=== PATIENT | male | born 1980 | race American Indian/Alaskan Native ===

== ENCOUNTER 2021-07-19 21:41 | Inpatient (IN) | payer SELFPAY ==
[2021-07-19] MEDS ORDERED: NALOXONE 2 MG/2 ML INJ IV ONE (22:10)
[2021-07-19] MEDS ORDERED: SODIUM CHLORIDE 0.9% 1000 ML 1,000 ML IV ONE (22:10)
[2021-07-19] MEDS ORDERED: DEXTROSE 50% IN WATER (25GM) 50 ML SYRINGE IV ONE (22:27)
[2021-07-19] MEDS ORDERED: DEXTROSE 10% *Hypoglycemia IV ONE ×2 (22:34→22:35)
[2021-07-19] MEDS ORDERED: GLUCAGON (HUMAN RECOMBINANT) 1 MG/ML INJ IV ONE (22:35)
[2021-07-19] MEDS ORDERED: DEXTROSE 10% IN WATER 1,000 ML IV SCH (23:00)
--- NOTE | 2021-07-19 23:03 | XRay Report ---
CHEST 1 VIEW INDICATION / CLINICAL INFORMATION: AMS. COMPARISON: None available. FINDINGS: SUPPORT DEVICES: None. HEART / MEDIASTINUM: No significant abnormality. LUNGS / PLEURA: Patient is prominently rotated. There is minimal bibasilar parenchymal disease, nonsp ecific. Given the low lung volumes, the most likely etiology for the bibasilar parenchymal disease is atelectasis. The remainder of the lungs are grossly clear. No pneumothorax. ADDITIONAL FINDINGS: No significant additional findings. IMPRESSION: 1. Low lung volumes with mild bibasilar parenchymal disease, more than likely atelectasis. Signer Name: Mitzi Bhandari MD Signed: 07/19/2021 10:59 PM Workstation Name: [id number]
[2021-07-19 23:29] LABS: Mean Corpuscular HGB Conc 31 % (32-34); Mean Corpuscular Volume 84 fl (84-94); Platelet Count 361 K/mm3 (140-440); Red Blood Count 5.65 M/mm3 (3.65-5.03); Red Cell Distribution Width 14.4 % (13.2-15.2)
[2021-07-19 23:32] LABS: Hematocrit 47.4 % (35.5-45.6); Hemoglobin 14.8 gm/dl (11.8-15.2)
[2021-07-20 00:22] LABS: Alanine Aminotransferase 19 units/L (7-56); BUN/Creatinine Ratio 12; Blood Urea Nitrogen 16 mg/dL (9-20); Calcium 9.1 mg/dL (8.4-10.2); Hemolysis Index 3
[2021-07-20] MEDS ORDERED: DEXTROSE 50% IN WATER (25GM) 50 ML SYRINGE IV ONE (00:25)
[2021-07-20 01:04] LABS: Bilirubin,Urine NEG (Negative); Blood,Urine SM (Negative); Color,Urine Yellow (Yellow); Protein,Urine <15 mg/dL mg/dL (Negative); Urobilinogen,Urine < 2.0 mg/dL (<2.0)
[2021-07-20 01:12] LABS: Amphetamine Screen,Urine PRESUMPTIVE NEGATIVE; Benzodiazepines Screen,Urine PRESUMPTIVE POSITIVE; Cannabinoid Screen,Urine PRESUMPTIVE POSITIVE; Cocaine Screen,Urine PRESUMPTIVE NEGATIVE; Methadone Screen,Urine PRESUMPTIVE NEGATIVE; Opiate Screen,Urine PRESUMPTIVE NEGATIVE
[2021-07-20 01:14] LABS: RBC,Urine < 1.0 /HPF (0.0-6.0); WBC,Urine < 1.0 /HPF (0.0-6.0)
[2021-07-20] MEDS ORDERED: HALOPERIDOL LACTATE 5 MG/1 ML INJ ONE (02:40)
[2021-07-20] MEDS ORDERED: HALOPERIDOL LACTATE 5 MG/1 ML INJ IM ONE (02:42)
[2021-07-20 02:50] LABS: INR 1.01 (0.87-1.13)
--- NOTE | 2021-07-20 03:37 | Cat Scan Report ---
CT head/brain wo con INDICATION / CLINICAL INFORMATION: AMS. TECHNIQUE: Axial CT imaging of the brain was obtained without contrast. Coronal and sagittal reformatted imaging obtained and reviewed. All CT scans at this location are performed using CT dose reduction for ALAR A by means of automated exposure control. COMPARISON: None available. FINDINGS: No intracranial hemorrhage, mass, or midline shift is noted. No extra-axial fluid collection or sugge stion of acute territorial infarction. There is calcification in the basal ganglia bilaterally, which is typically an incidental and clinically insignificant finding. Ventricular system and basilar cist erns are unremarkable. The left maxillary antrum is completely opacified. There is significant opacification of the left ant erior and posterior ethmoid air cells. There is some opacification of the right anterior ethmoid air cells. The left frontal sinus is completely opacified. Mastoid air cells are aerated bilaterally. No calvarial abnormality. IMPRESSION: 1. Complete opacification of the left frontal and maxillary sinuses with significant opacification of the ethmoid air cells bilaterally, left greater than right.. The appearance is consistent with sinus itis. 2. No additional significant finding. Signer Name: Mitzi Bhandari MD Signed: 07/20/2021 3:33 AM Workstation Name: [id number]
[2021-07-20] MEDS ORDERED: cefTRIAXone/NS 1 GM/50 ML 1 GM/50 ML BAG IV ONE (03:52)
--- NOTE | 2021-07-20 04:07 | Emergency Department Report ---
ED General Adult HPI - General Chief complaint: Hypoglycemia Stated complaint: AMS Time Seen by Provider: 07/19/21 22:09 Source: EMS Mode of arrival: Stretcher Limitations: Altered Mental Status - History of Present Illness Initial comments: PT FOUND TO HAVE AMS AT WORK, FSBS 50 ON SCENE, 15G OF ORAL GLUCOSE GIVEN FSBS OF 80. 4 OF NARCAN GIVEN FOR PINPOINT PUPILS, 2MG INTRANASALLY AND 2MG IV, 20GA IN THE LAC -: Gradual, days(s) Worsens with: none - Related Data Allergies Allergy/AdvReac Type Severity Reaction Status Date / Time No Known Allergies Allergy Verified 07/19/21 21:58 ED Review of Systems ROS: Stated complaint: AMS Other details as noted in HPI Comment: Unobtainable due to pts medical conditions ED Past Medical Hx - Past Medical History Previous Medical History?: Yes - Surgical History Past Surgical History?: No ED Physical Exam - General Limitations: Altered Mental Status General appearance: lethargic, obtunded - Head Head exam: Present: atraumatic, normocephalic - Eye Eye exam: Present: normal appearance - ENT ENT exam: Present: mucous membranes moist - Neck Neck exam: Present: normal inspection - Respiratory Respiratory exam: Present: normal lung sounds bilaterally. Absent: respiratory distress - Cardiovascular Cardiovascular Exam: Present: regular rate, normal rhythm. Absent: systolic murmur, diastolic murmur, rubs, gallop - GI/Abdominal GI/Abdominal exam: Present: soft, normal bowel sounds - Rectal Rectal exam: Present: deferred - Extremities Exam Extremities exam: Present: normal inspection - Back Exam Back exam: Present: normal inspection - Neurological Exam Neurological exam: Present: alert, oriented X3 - Psychiatric Psychiatric exam: Present: normal affect, normal mood - Skin Skin exam: Present: warm, dry, intact, normal color. Absent: rash ED Course Vital Signs 07/19/21 07/19/21 07/19/21 22:00 22:27 22:30 Temperature 98.8 F Pulse Rate 98 H 73 Respiratory 18 14 13 Rate Blood Pressure Blood Pressure 160/90 [Left] O2 Sat by Pulse 98 99 Oximetry 07/19/21 07/19/21 07/19/21 22:46 23:00 23:16 Temperature Pulse Rate Respiratory 21 30 H 29 H Rate Blood Pressure 181/115 164/113 164/113 Blood Pressure [Left] O2 Sat by Pulse 98 99 90 Oximetry 07/19/21 07/19/21 02 23:30 23:46 00:00 Temperature Pulse Rate Respiratory 27 H 25 H 11 L Rate Blood Pressure 170/107 183/120 189/118 Blood Pressure [Left] O2 Sat by Pulse 100 97 97 Oximetry 07/20/21 07/20/21 07/20/21 00:16 00:30 00:46 Temperature Pulse Rate Respiratory 22 22 22 Rate Blood Pressure 189/118 164/94 173/99 Blood Pressure [Left] O2 Sat by Pulse 97 99 100 Oximetry - Reevaluation(s) Reevaluation #1: 07/20/21 04:05 3 am of d 50 , d 10 , glucagon given , ct head negative , BS still trending lower , more awake but need rstrain ED Medical Decision Making - Lab Data Result diagrams: 07/19/21 23:10 07/19/21 23:29 Critical care attestation.: If time is entered above; I have spent that time in minutes in the direct care of this critically ill patient, excluding procedure time. ED Disposition Clinical Impression: Altered mental status, Hypoglycemia Disposition: 09 ADMITTED INPATIENT Is pt being admited?: Yes Does the pt Need Aspirin: No Condition: Fair Referrals: PRIMARY CARE, [Primary Care Provider] - 3-5 Days
[2021-07-20] MEDS ORDERED: MIDAZOLAM 5 MG/5 ML INJ MDV IV NR (05:00)
[2021-07-20] MEDS ORDERED: ACETAMINOPHEN 325 MG TAB PO PRN (05:01)
[2021-07-20] MEDS ORDERED: MORPHINE 2 MG/1 ML INJ IV PRN (05:01)
[2021-07-20] MEDS ORDERED: ONDANSETRON 4 MG/2 ML INJ IV PRN (05:01)
[2021-07-20] MEDS ORDERED: MORPHINE 4 MG/1 ML INJ IV PRN (05:01)
[2021-07-20] MEDS ORDERED: MAGNESIUM HYDROXIDE (MOM) ORAL LIQD UDC PO PRN (05:01)
--- NOTE | 2021-07-20 05:25 | History and Physical Report ---
History of Present Illness Date of examination: 07/20/21 Date of admission: 07/20/2021 Chief complaint: Altered Mental Status History of present illness: 41-year-old -[place] male brought into the emergency room for evaluation of changes in mental status. Patient was said to have been found altered while at work with a blood glucose level of 50 on the field. Patient had 15 g of oral glucose with improvement of blood glucose to about 80. He had multiple rounds of Narcan given because of his pinpoint pupils. Patient unable to give any history most of the history was obtained from the ER staff. During the course of the stay in the emergency room patient had multiple episodes of hypoglycemia. He had multiple rounds of D50 with minimal improvement of his blood glucose. Patient subsequently placed on D10 IV fluid. Work-up in the emergency room today, lab reveals a lactic acid of 2.8, urinalysis unremarkable. Toxicology screen was positive for benzodiazepine. Chest x-ray reveals low volume with mild bibasilar parenchymal disease, likely atelectasis. CT of the head reveals findings consistent with sinusitis. Patient has been admitted into the intensive care unit. Past History Past Medical History: No medical history Past Surgical History: No surgical history Social history: no significant social history Family history: no significant family history Medications and Allergies Allergies Allergy/AdvReac Type Severity Reaction Status Date / Time No Known Allergies Allergy Verified 07/19/21 21:58 Active Meds: Active Medications Dextrose (D10w) 1,000 mls @ 100 mls/hr IV DIRECT SIS Last Admin: 07/19/21 23:33 Dose: 100 mls/hr Midazolam HCl (Midazolam 5 Mg/5 Ml Inj Mdv) 2.5 mg IV ONCE NR Stop: 07/20/21 06:59 Last Admin: 07/20/21 04:42 Dose: 2.5 mg Review of Systems ROS unobtainable: due to mental status Exam - Constitutional Vitals: Temp Pulse Resp BP Pulse Ox 98.8 F 73 22 173/99 100 07/19/21 22:00 07/19/21 22:30 07/20/21 00:46 07/20/21 00:46 07/20/21 00:46 General appearance: Present: no acute distress, well-nourished - EENT Eyes: Present: PERRL, EOM intact. Absent: scleral icterus ENT: hearing intact, clear oral mucosa, dentition normal - Neck Neck: Present: supple, normal ROM - Respiratory Respiratory effort: normal Respiratory: bilateral: CTA - Cardiovascular Rhythm: regular Heart Sounds: Present: S1 & S2. Absent: gallop, systolic murmur, diastolic murmur, rub, click - Extremities Extremities: no ischemia, pulses intact, pulses symmetrical, No edema, normal temperature, normal color, Full ROM Peripheral Pulses: within normal limits - Abdominal General gastrointestinal: Present: soft, non-tender, non-distended, normal bowel sounds. Absent: mass - Integumentary Integumentary: Present: clear, warm, dry, normal turgor. Absent: rash - Musculoskeletal Musculoskeletal: strength equal bilaterally - Psychiatric Psychiatric: appropriate mood/affect, intact judgment & insight, memory intact, cooperative - Neurologic Neurologic: CNII-XII intact, no focal deficits, moves all extremities HEART Score - HEART Score Troponin: Troponin T < 0.010 ng/mL (0.00-0.029) 07/19/21 23:29 Results - Labs CBC & Chem 7: 07/19/21 23:10 07/19/21 23:29 Labs: Abnormal lab results 07/19/21 07/19/21 07/19/21 Range/Units 22:26 23:10 23:10 RBC 5.65 H (3.65-5.03) M/mm3 Hct 47.4 H (35.5-45.6) % MCH 26 L (28-32) pg MCHC 31 L (32-34) % POC Glucose 59 L (70-105) mg/dL Lactic Acid (0.7-2.0) mmol/L Alkaline Phosphatase (35-129) units/L Ammonia (25-60) umol/L Total Creatine Kinase (55-170) units/L Salicylates < 0.3 L (2.8-20.0) mg/dL Acetaminophen (10.0-30.0) ug/mL 07/19/21 07/19/21 07/19/21 Range/Units 23:10 23:11 23:29 RBC (3.65-5.03) M/mm3 Hct (35.5-45.6) % MCH (28-32) pg MCHC (32-34) % POC Glucose 57 L (70-105) mg/dL Lactic Acid (0.7-2.0) mmol/L Alkaline Phosphatase 150 H (35-129) units/L Ammonia (25-60) umol/L Total Creatine Kinase 770 H (55-170) units/L Salicylates (2.8-20.0) mg/dL Acetaminophen 5.0 L (10.0-30.0) ug/mL 07/19/21 07/19/21 07/20/21 Range/Units 23:29 23:29 00:23 RBC (3.65-5.03) M/mm3 Hct (35.5-45.6) % MCH (28-32) pg MCHC (32-34) % POC Glucose 65 L (70-105) mg/dL Lactic Acid 2.80 H* (0.7-2.0) mmol/L Alkaline Phosphatase (35-129) units/L Ammonia 23.0 L (25-60) umol/L Total Creatine Kinase (55-170) units/L Salicylates (2.8-20.0) mg/dL Acetaminophen (10.0-30.0) ug/mL 07/20/21 Range/Units 03:14 RBC (3.65-5.03) M/mm3 Hct (35.5-45.6) % MCH (28-32) pg MCHC (32-34) % POC Glucose 58 L (70-105) mg/dL Lactic Acid (0.7-2.0) mmol/L Alkaline Phosphatase (35-129) units/L Ammonia (25-60) umol/L Total Creatine Kinase (55-170) units/L Salicylates (2.8-20.0) mg/dL Acetaminophen (10.0-30.0) ug/mL Assessment and Plan - Patient Problems (1) Altered mental status Current Visit: Yes Status: Acute Plan to address problem: Etiology is unclear. Possibly secondary to the hypoglycemia We will monitor closely. (2) Hypoglycemia Current Visit: Yes Status: Acute Plan to address problem: Patient has been started on D10 IV fluid. We will monitor Accu-Cheks q. hourly. (3) DVT prophylaxis Current Visit: Yes Status: Acute Plan to address problem: Patient placed on subcutaneous heparin. (4) Full code status Current Visit: Yes Status: Acute Plan to address problem: Patient is full code.
[2021-07-20] MEDS ORDERED: HEPARIN 5,000 UNIT/1 ML VIAL SUB-Q SCH (06:00)
[2021-07-20] MEDS ORDERED: DEXTROSE 10% *Hypoglycemia IV PRN (08:04)
[2021-07-20] MEDS ORDERED: hydrALAZINE 20 MG/1 ML INJ IV ONE (08:15)
[2021-07-20] MEDS ORDERED: hydrALAZINE 20 MG/1 ML INJ ONE (08:22)
[2021-07-20 10:19] VITALS: BP 146/99
--- NOTE | 2021-07-20 14:19 | Event Note ---
Date: 07/20/21 Examined and evaluated the patient this morning while he was awake and oriented to place and person he still was however lethargic we explained the plan of care to him he was also restraints due to confusion earlier in the morning and was throwing things including body fluids to nurses. He eventually had calm down and restraints was removed. I was called subsequently later to be informed that the patient was signed out AGAINST MEDICAL ADVICE. He was ambulatory and was in full cognitive function. And understands the actions he was about to take. Per nursing staff he refused having his blood sugar checked again.
== END 2021-07-20 10:52 | disposition left against medical advice (07) | DRG 641 ==
LOC: ED 21:41 → CC1 07-20 05:03
PROVIDERS: ADMIT Internal Medicine Geriatric Medicine; ATTEND Internal Medicine
DX: E16.2 Hypoglycemia, unspecified (principal); R41.82 Altered mental status, unspecified
CPT/HCPCS: 36415; 70450; 71045; 80053; 80307; 80320; 81001; 82140; 82550; 82962; 83036; 84484; 85025; 85610; G0378; J3490; Q0162; G0480; J0360; J0696; J1610; J1630; J2250; J7030